=== PATIENT | male | born 1980 | race Caucasian/White ===

== ENCOUNTER 2018-07-19 01:22 | Emergency (ER) | payer MEDICAID ==
[~2018-07-19] VITALS: Ht 170.2 cm; Wt 99.8 kg
[2018-07-19 01:30] VITALS: BP 149/89
--- NOTE | 2018-07-19 01:30 | NUR ---
PT AMBULATED TO BED 12 FOR BEDSIDE TRIAGE
--- NOTE | 2018-07-19 01:39 | NUR ---
EDMD AT BEDSIDE PERFORMING MSE
--- NOTE | 2018-07-19 02:11 | NUR ---
F/C INSERTED PT TOLERATED WELL.
--- NOTE | 2018-07-19 02:30 | NUR ---
PT ASLEEP IN BED. WITH SPOUSE AT BEDSIDE. EASILY AROUSABLE.
[2018-07-19] MEDS ORDERED: NACL 0.9% 2,000 ML IV ONE (02:36)
[2018-07-19 02:49] LABS: APPEARANCE,URINE BLOODY (CLEAR); BILIRUBIN,URINE NEGATIVE (NEGATIVE); BLOOD, URINE 3+ (NEGATIVE); COLOR,URINE RED (YELLOW); LEUKOCYTE ESTERASE ,URINE TRACE (NEGATIVE); NITRITE, URINE POSITIVE (NEGATIVE); PH,URINE 6.5 (5.0-9.0); UGLUCOSE NEGATIVE (NEGATIVE)
[2018-07-19] MEDS ORDERED: cefTRIAXone 1,000 MG VIAL ONE (02:58)
[2018-07-19 02:59] LABS: WBC,URINE 0-5 /HPF (0-5)
[2018-07-19 03:00] LABS: RBC,URINE 50-80 /HPF (0-5); URINE AMORPHOUS URATE 1+ /HPF (None Seen)
[2018-07-19 03:32] LABS: BASOPHILS # (AUTO) 0.1 K/uL (0.00-0.22); EOSINOPHILS # (AUTO) 0.2 K/uL (0-0.4); EOSINOPHILS % (AUTO) 3.4 % (0.0-4.0); HEMATOCRIT 47.3 % (36-52); HEMOGLOBIN 16.1 g/dL (12.0-18.0); LYMPHOCYTES # (AUTO) 1.7 K/uL (2.0-11.5); LYMPHOCYTES % (AUTO) 24.6 % (20.5-51.1); MEAN CORPUSCULAR HEMOGLOBIN 30 pg (27-31); MEAN CORPUSCULAR HGB CONC 34 g/dL (33-37); MEAN CORPUSCULAR VOLUME 88.7 fL (80-94); MONOCYTES # (AUTO) 0.5 K/uL (0.8-1.0); MONOCYTES % (AUTO) 7.4 % (1.7-9.3); NEUTROPHILS # (AUTO) 4.3 K/uL (1.8-7.7); NEUTROPHILS % (AUTO) 63.6 % (42.2-75.2); PLATELET COUNT (AUTO) 238 K/uL (140-450); RED BLOOD CELL COUNT(AUTO) 5.34 MIL/uL (4.20-6.10); RED CELL DISTRIBUTION WIDTH 13.2 % (11.6-13.7); WHITE BLOOD COUNT (AUTO) 6.8 K/uL (4.8-10.8)
--- NOTE | 2018-07-19 03:34 | NUR ---
PT AWAKE IN BED. BEDRAILS X1 UP. WILL CONITNUE TO MONITOR.
[2018-07-19 03:40] LABS: ANION GAP 19.3 (8-16); CARBON DIOXIDE 23.4 mmol/L (21-32); CREATININE 0.9 mg/dL (0.7-1.3); POTASSIUM 3.7 mmol/L (3.5-5.1)
[2018-07-19 03:45] LABS: TOTAL BILIRUBIN 0.3 mg/dL (0.0-1.0)
[2018-07-19 03:49] LABS: PROTHROMBIN TIME 9.9 secs (10.8-13.4)
--- NOTE | 2018-07-19 04:10 | NUR ---
F/C EMPTIED, 900CC COLLECTED. HEMATURIA NOTED. URINE IN TUBING CLEAR WITH SMALL BLOOD CLOTS NOTED.
--- NOTE | 2018-07-19 05:51 | NUR ---
GUTIERREZ CATH D/C. PT TOLERATED WELL. DISCHARGE PENDING PT ABLE TO VOID ON HIS OWN.
[2018-07-19 06:20] VITALS: BP 119/68
--- NOTE | 2018-07-19 06:20 | NUR ---
Patient discharged with v/s stable. Written and verbal after care instructions given and explained. Patient alert, oriented and verbalized understanding of instructions. Ambulatory with steady gait. All questions addressed prior to discharge. ID band removed. Patient advised to follow up with PMD. Rx of Keflex and Phenazopyridine given. Patient educated on indication of medication including possible reaction and side effects. Opportunity to ask questions provided and answered.
== END 2018-07-19 06:20 | disposition home or self-care (01) ==
LOC: MED 01:22
DX: N39.0 Urinary tract infection, site not specified (principal); N30.90 Cystitis, unspecified without hematuria; R33.9 Retention of urine, unspecified
CPT/HCPCS: 36415; 80053; 81001; 83605; 85025; 85610; 85730; 87040; 87086; 96365; 99283; J0696

== ENCOUNTER 2018-07-19 10:00 | Emergency (ER) | payer MEDICAID ==
[~2018-07-19] VITALS: Ht 170.2 cm; Wt 108.9 kg
[2018-07-19 10:02] VITALS: BP 137/95
--- NOTE | 2018-07-19 10:14 | NUR ---
C/O DIZZINESS & WEAKNESS. SEEN HERE & DISCHARGE AT 6 AM TODAY WITH DX: UTI, GOT KEFLEX&PHENAZOPYRIDIUM. HX:ASTHMA MED: NONE PATIENT STATES PAIN OF 0/10 AT THIS TIME. PATIENT POSITIONED FOR COMFORT; HOB ELEVATED; BEDRAILS UP X2; BED DOWN. ER MADE AWARE OF PT STATUS. Addendum: 07/19/18 at 1018 by [email or web address] PT DOES NOT GO GET MEDS AT PHARMACY.
[2018-07-19 11:12] VITALS: BP 137/95
--- NOTE | 2018-07-19 11:12 | NUR ---
Patient discharged with v/s stable. Written and verbal after care instructions given and explained. Patient verbalized understanding. Ambulatory with steady gait. All questions addressed prior to discharge. Advised to follow up with PMD.
== END 2018-07-19 11:12 | disposition home or self-care (01) ==
LOC: MED 10:00
DX: E86.0 Dehydration (principal); F10.129 Alcohol abuse with intoxication, unspecified; Y90.9 Presence of alcohol in blood, level not specified; J45.909 Unspecified asthma, uncomplicated
CPT/HCPCS: 81002; 99282